=== PATIENT | female | born 1960 | race American Indian/Alaskan Native ===

== ENCOUNTER 2017-04-19 07:03 | Day surgery (SDC) | payer BC, OTHER ==
[2017-04-14 09:21] VITALS: BMI 43.2
[2017-04-19] MEDS ORDERED: Lidocaine 2% Inj (20ml) ONE (07:59)
[2017-04-19] MEDS ORDERED: Propofol 10 mg/ml Inj (20 ML) ONE (07:59)
[2017-04-19] MEDS ORDERED: Sodium Chloride 0.9% 1,000 ML IV SCH (08:30)
[2017-04-19 09:28] VITALS: BP 133/71; PULSE 75; RESP 18; TEMP 97.8; O2SAT 99
== END 2017-04-19 10:05 | disposition home or self-care (01) ==
LOC: ENDO 07:03
PROVIDERS: ATTEND Specialist
DX: K20.9 Esophagitis, unspecified (principal); K29.50 Unspecified chronic gastritis without bleeding; Z98.84 Bariatric surgery status